=== PATIENT | male | born 1960 | race Caucasian/White ===

== ENCOUNTER → 2025-04-15 10:08 | Outpatient (REF) | payer OTHER, SELFPAY | LOC: RCS 10:08 | PROVIDERS: ATTENDING PHYSICIAN Internal Medicine Cardiovascular Disease; FAMILY PHYSICIAN Family Medicine | DX: I10 Essential (primary) hypertension (principal); E11.65 Type 2 diabetes mellitus with hyperglycemia; R00.2 Palpitations | CPT/HCPCS: 93306 ==